=== PATIENT | female | born 1935 | race Caucasian/White ===

== ENCOUNTER 2017-01-24 09:29 | Day surgery (SDC) | payer OTHER, BC ==
[2017-01-24 10:54] VITALS: BMI 18.3
[2017-01-24 12:01] VITALS: TEMP 97.6
[2017-01-24 13:23] VITALS: BP 146/74; PULSE 71
--- NOTE | 2017-01-25 13:19 | PATH ---
Surgical Pathology Report Patient Name: DARCI KEYES [facility]. Rec. #: [id number] /Age/Gender: 1935 (Age: 81) / F Account: [id number] Location: U-ENDOSCOPY Taken: 01/24/2017 Received: 01/24/2017 Reported: 01/25/2017 Physicians: Bran Dillard M.D. Specimen(s) Received BX PYLORIC CHANNEL Clinical History Pyloric stricture Gastritis, pyloric stricture, hiatal hernia Final Diagnosis PYLORIC CHANNEL, BIOPSY: GASTRIC ANTRAL MUCOSA WITH MODERATE CHRONIC GASTRITIS AND REACTIVE GASTROPATHY WITH FOCAL SURFACE ULCERATION. NEGATIVE FOR DYSPLASIA. IMMUNOSTAIN FOR H. PYLORI IS NEGATIVE FOR ORGANISMS. Electronically Signed Gonzalez Carpenter M.D. Gross Description Received in formalin, labeled "biopsy pyloric channel" are 3 chawla, irregular portions of soft tissue averaging less than 0.1 cm in greatest dimension. The specimens are submitted in toto in one cassette. /01/24/201701/24/2017
== END 2017-01-24 13:23 | disposition home or self-care (01) ==
LOC: JASU-ENDO 09:29
PROVIDERS: ATTEND Internal Medicine Gastroenterology
PROC: 0D778ZZ Dilation of Stomach, Pylorus, Via Natural or Artificial Opening Endoscopic (ICD-10-PCS; 2017-01-24)
PROC: 0DB68ZX Excision of Stomach, Via Natural or Artificial Opening Endoscopic, Diagnostic (ICD-10-PCS; principal; 2017-01-24 10:30)
DX: K31.1 Adult hypertrophic pyloric stenosis (principal); K44.9 Diaphragmatic hernia without obstruction or gangrene; K29.00 Acute gastritis without bleeding
CPT/HCPCS: 88305-TC; 88342-TC

== ENCOUNTER 2017-02-14 06:58 | Day surgery (SDC) | payer OTHER, BC ==
[2017-02-14 07:49] VITALS: BMI 18.3
[2017-02-14] MEDS ORDERED: PROPOFOL 20 ML ONE ×3 (07:55)
[2017-02-14] MEDS ORDERED: LIDOCAINE HCL/PF 2% SDV 5ML VIAL ONE (07:55)
[2017-02-14 09:10] VITALS: TEMP 97.6
[2017-02-14 10:00] VITALS: BP 150/88; PULSE 70
--- NOTE | 2017-02-16 14:01 | PATH ---
Surgical Pathology Report Patient Name: DARCI KEYES [facility]. Rec. #: [id number] /Age/Gender: 1935 (Age: 81) / F Account: [id number] Location: [facility]-ENDOSCOPY Taken: 02/14/2017 Received: 02/14/2017 Reported: 02/16/2017 Physicians: Bran Dillard M.D. Specimen(s) Received BX PYLORUS Clinical History Abdominal pain, weight loss, history of pyloric stenosis Pyloric channel stricture, hiatal hernia Final Diagnosis PYLORUS STRICTURE, BIOPSY: GASTRIC ANTRAL MUCOSA WITH MODERATE CHRONIC GASTRITIS AND REACTIVE GASTROPATHY WITH FOCALLY PROMINENT BLAND APPEARING SMOOTH MUSCLE (SEE COMMENT). IMMUNOSTAIN FOR H. PYLORI IS NEGATIVE FOR ORGANISMS. Comment: Immunohistochemical stains performed at the [place], [place]([id number]) and interpreted at [facility] show the following: the muscle fibers are positive for SMM-HC immunostain; DOG1, CD117 and S100 are negative; CD34 shows non-specific reactivity. The findings may represent focal smooth muscle hyperplasia or leiomyoma in proper endoscopic settings. Endoscopic correlations are suggested. Electronically Signed Gonzalez Carpenter M.D. Gross Description Received in formalin, labeled "biopsy pylorus stricture" are 2 chawla, irregular portions of soft tissue measuring 0.3 and 0.5 cm in greatest dimension. The specimens are submitted in toto in one cassette. /02/14/2017 saudi02/14/2017
== END 2017-02-14 10:00 | disposition home or self-care (01) ==
LOC: JASU-ENDO 06:58
PROVIDERS: ATTEND Internal Medicine Gastroenterology
PROC: 0DB78ZX Excision of Stomach, Pylorus, Via Natural or Artificial Opening Endoscopic, Diagnostic (ICD-10-PCS; 2017-02-14)
PROC: 0D778ZZ Dilation of Stomach, Pylorus, Via Natural or Artificial Opening Endoscopic (ICD-10-PCS; principal; 2017-02-14 08:00)
DX: K31.1 Adult hypertrophic pyloric stenosis (principal); K44.9 Diaphragmatic hernia without obstruction or gangrene
CPT/HCPCS: 88305-TC; 88342-TC